=== PATIENT | male | born 1995 | race Caucasian/White ===

== ENCOUNTER 2022-03-04 08:39 | Emergency (ER) | payer SELFPAY ==
--- NOTE | 2022-03-04 09:01 | ED.MALEGU ---
HPI - Male Genitourinary General Chief complaint: Urogenital-Male Stated complaint: STD Test Time Seen by Provider: 03/04/22 09:15 Source: patient Mode of arrival: ambulatory Limitations: no limitations History of Present Illness HPI Narrative: Mr. Yoder is a 27-year-old male patient presenting to the clinic today with complaints of penile discharge. He reports that this started this morning. His sexual partner is also in the clinic today with complaints of vaginal discharge and lower abdominal pain. Patient reports that he has had this yellowish white discharge coming from his penis. Also reports that it is painful to urinate. He denies any abdominal pain, flank pain, or fever Related Data Allergies Allergy/AdvReac Type Severity Reaction Status Date / Time No Known Allergies Allergy Verified 03/04/22 09:17 Review of Systems Review of Systems: Pertinent positives per HPI. Patient denies any fever, chills, rash, headache, visual changes, dizziness, cough, runny nose, sore throat, shortness of breath, chest pain, palpitations, nausea, vomiting, diarrhea, constipation, abdominal pain,. PMFSH Comments At the time of my signature, I reviewed and agree with the nursing past medical, surgical, social, and family history. There is no relevant family history pertinent to the patient complaint. Exam Narrative: General: Well-developed, well nourished, in no apparent distress. Head: Normocephalic, atraumatic. Cardio: Regular rate and rhythm, s1 and s2 normal, no murmur appreciated. Resp: Clear to auscultation bilaterally, no rhonchi, rales, wheezing or rubs. Abdomen: Soft, pliable, bowel sounds present in all quadrants, non-tender to palpation, no organomegly, no CVAT tenderness. : circumcised male with yellowish white discharge coming from the urinary meatus. opening of urinary meatus is red and inflamed Course Course Emergency Course: Portions of this record may have been created with voice recognition software. Level of Care: Express Care Visit Vital Signs Vital signs: Vital Signs Temperature 36.9 C 03/04/22 09:17 Pulse Rate 70 03/04/22 09:17 Respiratory Rate 18 03/04/22 09:17 Blood Pressure 119/71 03/04/22 09:17 Pulse Oximetry 100 03/04/22 09:17 Oxygen Delivery Room Air 03/04/22 09:17 Temperature 36.9 C 03/04/22 09:17 Pulse Rate 70 03/04/22 09:17 Respiratory Rate 18 03/04/22 09:17 Blood Pressure 119/71 03/04/22 09:17 Pulse Oximetry 100 03/04/22 09:17 Oxygen Delivery Room Air 03/04/22 09:17 Vital signs reviewed MDM - Male Genitourinary MDM Narrative Medical decision making narrative: at the time of the patient is resting comfortably on the exam table. I suspect the patient has a sexually transmitted infection such as chlamydia. Rocephin 500 mg IM given in the clinic today and prescriptions for doxycycline and metronidazole were sent to the pharmacy. Supportive measures were discussed with the patient he voiced understanding of discharge instructions and agrees to the treatment plan. Differential Diagnosis Differential diagnosis: Likely urinary tract infection, urethritis and other ( Sexually transmitted infection) Discharge Plan Discharge Clinical Impression: Discharge from penis without blood, Dysuria Patient Disposition: Home, Self-Care Condition: Stable Instructions: Antibiotic Form, Sexually Transmitted Diseases (ED), Safe Sex Practices (ED), Dysuria (ED) Additional Instructions: Rocephin 500 mg IM given in the clinic today UA shows trace of bacteria and glucose. We will send for culture dirty urine was obtained to test for chlamydia, Trichomonas, and gonorrhea prescriptions for doxycycline and metronidazole was sent to the pharmacy no sexual intercourse x2 weeks increase fluids and stay well hydrated follow-up with your PCP in 1 week if symptoms persist go to the emergency room if you develop high fever not controlle
[2022-03-04 09:17] VITALS: BP 119/71; PULSE 70; RESP 18; TEMP 36.9; O2SAT 100
[2022-03-04] MEDS: cefTRIAXone 500 MG, LIDOCAINE HCL 1% LOCAL INJ 1 ML IM (10:19)
== END 2022-03-04 10:32 | disposition home or self-care (01) ==
PROVIDERS: Emergency Provider Nurse Practitioner Family
DX: R36.9 Urethral discharge, unspecified (principal); R30.0 Dysuria
CPT/HCPCS: 81003; 87491; 87591; 87661; 96372; 99213; G0463; J0696

== ENCOUNTER 2023-07-25 10:04 | Emergency (ER) | payer SELFPAY ==
--- NOTE | ~2023-07-25 | XR_ITS ---
EXAMINATION: XR knee LT min 4V DATE: 07/25/2023 10:27 INDICATION: Posterolateral left knee pain TECHNIQUE: Anteroposterior, 2 oblique and crosstable lateral views of the affected knee were obtained COMPARISON: None. FINDINGS: Alignment is normal. No fracture. Joint spaces appear normal on nonweightbearing imaging. No joint e ffusion/layering lipohemarthrosis. Soft tissues are unremarkable. IMPRESSION: 1. Negative left knee radiographs. Reviewed, dictated and finalized at location A.
[2023-07-25 10:09] VITALS: BP 133/94; PULSE 68; RESP 17; TEMP 36.6; O2SAT 100
--- NOTE | 2023-07-25 10:11 | ED.LOWEXIN ---
HPI - Extremity Injury (Lower) General Chief Complaint: Extremity Injury, Lower Stated Complaint: Left Knee Pain Time Seen by Provider: 07/25/23 10:10 Source: patient Mode of arrival: ambulatory Limitations: no limitations History of Present Illness HPI Narrative: Ron is a 28-year-old male patient presenting to the ER today with complaints of left knee pain x1 day. He reports he was running around with the kids and suddenly stopped and injured his knee. States he is having pain to the lateral and posterior knee. Mild swelling noted when compared to the right knee. Is having pain with full extension of the knee as well as full flexion. Related Data Allergies Allergy/AdvReac Type Severity Reaction Status Date / Time No Known Allergies Allergy Verified 07/25/23 10:23 Review of Systems Review of Systems: Pertinent positives per HPI. Patient denies any fever, chills, rash, headache, visual changes, dizziness, cough, runny nose, sore throat, shortness of breath, chest pain, palpitations, nausea, vomiting, diarrhea, constipation, abdominal pain, or any urinary issues. PMFSH Comments At the time of my signature, I reviewed and agree with the nursing past medical, surgical, social, and family history. There is no relevant family history pertinent to the patient complaint. Exam Narrative: General: Well-developed, well nourished, in no apparent distress Head: Normocephalic, atraumatic. Cardio: Regular rate and rhythm, s1 and s2 normal, no murmur appreciated. Resp: Clear to auscultation bilaterally, no rhonchi, rales, wheezing or rubs. Musculoskeletal: No deformity, tender to palpation over the left lateral knee and posterior knee, pain with valgus and varus testing, negative anterior posterior drawer sign, muscle strength strong and equal, peripheral pulse strong, no edema, no cyanosis, normal gait and station Course Course Emergency Course: Portions of this record may have been created with voice recognition software. Vital Signs Vital signs: Vital Signs Temperature 36.6 C 07/25/23 10:09 Pulse Rate 68 07/25/23 10:09 Respiratory Rate 17 07/25/23 10:09 Blood Pressure 133/94 H 07/25/23 10:09 Pulse Oximetry 100 07/25/23 10:09 Oxygen Delivery Room Air 07/25/23 10:09 Temperature 36.6 C 07/25/23 10:09 Pulse Rate 68 07/25/23 10:09 Respiratory Rate 17 07/25/23 10:09 Blood Pressure 133/94 H 07/25/23 10:09 Pulse Oximetry 100 07/25/23 10:09 Oxygen Delivery Room Air 07/25/23 10:09 Vital signs reviewed MDM - Extremity Injury (Lower) MDM Narrative Medical decision making narrative: At the time of visit patient is resting comfortably on the exam table. Patient appears to be nontoxic. Diagnostics: X-ray of the left knee was performed Plan: Supportive measures were discussed with the patient and they voiced understanding discharge instructions and agrees to treatment plan. Return precautions reviewed Differential Diagnosis Differential diagnosis: Likely acute internal derangement of knee and other (Knee fracture, knee sprain) Imaging Data Radiologist's impression: ITS Impressions Knee X-Ray 07/25/23 10:53 IMPRESSION: 1. Negative left knee radiographs. Discharge Plan Discharge Clinical Impression: Left knee sprain Qualifiers: Encounter type: initial encounter Involved ligament of knee: lateral collateral ligament Qualified Code(s): S83.422A - Sprain of lateral collateral ligament of left knee, initial encounter Patient Disposition: Home, Self-Care Condition: Stable Instructions: Antibiotic Form, Knee Sprain (ED), Hinged Knee Brace (ED) Additional Instructions: Rest, ice, elevate, and wear elmer wrap as directed Wear hinged knee brace when up ambulating x1 week Tylenol/motrin for pain as discussed. May apply Aspercreme, blue emu, or lidocaine to the affected area to help alleviate pain Gradually bear weight No running or sports
== END 2023-07-25 11:30 | disposition home or self-care (01) ==
PROVIDERS: Emergency Provider Nurse Practitioner Family
DX: S83.422A Sprain of lateral collateral ligament of left knee, initial encounter (principal); X50.9XXA Other and unspecified overexertion or strenuous movements or postures, initial encounter
CPT/HCPCS: 73564; 99283

== ENCOUNTER 2023-08-02 13:13 | Emergency (ER) | payer OTHER, SELFPAY ==
[2023-08-02 13:24] VITALS: BP 132/89; PULSE 77; RESP 20; TEMP 36.8; O2SAT 99
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
== END 2023-08-02 14:55 | disposition home or self-care (01) ==
LOC: ANHED 14:41
PROVIDERS: Emergency Provider Emergency Medicine
DX: S70.01XA Contusion of right hip, initial encounter (principal); V43.52XA Car driver injured in collision with other type car in traffic accident, initial encounter
CPT/HCPCS: 99282